=== PATIENT | female | born 1940 | race Caucasian/White ===

== ENCOUNTER 2023-11-10 06:15 | Day surgery (SDC) | payer MEDICARE ==
[2023-11-10] MEDS ORDERED: Sodium Chloride 0.9% 1000 ML 1,000 ML ONE (06:50)
[2023-11-10] MEDS: Sodium Chloride 0.9% 1000 ML 1,000 ML IV SCH (06:57)
[2023-11-10] MEDS ORDERED: DIPRIVAN 200 MG/20 ML IV ONE (08:01)
[2023-11-10] MEDS ORDERED: Xylocaine-Mpf 2% 5 Ml Vial ONE (08:01)
[2023-11-10] MEDS ORDERED: ATROPINE SULFATE 1MG ONE (08:03)
[2023-11-10] MEDS ORDERED: Ephedrine Sulfate 50 MG/ML ONE (08:17)
[2023-11-10 08:48] VITALS: TEMP 97
[2023-11-10 09:06] VITALS: BP 147/87; PULSE 74; RESP 18; O2SAT 98
--- NOTE | 2023-11-10 11:29 | OP ---
SURGERY DATE/TIME: 11/10/2023 0802 PREOPERATIVE DIAGNOSIS: Change in bowel habits with loose stools. POSTOPERATIVE DIAGNOSIS: Proctitis. PROCEDURE: Colonoscopy with cold forceps biopsy of the rectal area. SURGEON: Dr. Meek. ANESTHESIA: Medications given by anesthesia department. HISTORY: The patient is an 83-year-old white female presents now with change in bowel habits with loose stools. The patient reports her last colonoscopy was approximately 20 years ago. The patient is felt to need to have endoscopic evaluation due to change in bowel habits. The patient was appraised of the risks of the procedure including the risk of perforation, phlebitis, untoward reaction to medication, bleeding and missed lesions. The patient verbalized her understanding and desired to have the procedure performed. DESCRIPTION OF PROCEDURE: The patient was given the medications by the anesthesia department. She had continuous pulse oximetry, ECG monitoring and intermittent blood pressure monitoring during the examination. The patient is placed in the left lateral decubitus position. Digital rectal examination was performed and revealed normal anal sphincter tone and no masses. The flexible Olympus pediatric colonoscope was used to intubate the rectum. A view of the colon was developed sequentially to the cecum. Upon withdrawal, there was noted to be the proctitis and this is biopsied using three passes of the cold forceps biopsy instrument. No other mucosal lesions were encountered. The scope was removed from the patient who tolerated the procedure well and was sent back to OP recovery in good condition. The prep was noted to be fair to good. There was also noted during the examination and prior to the examine the patient was somewhat bradycardic.
== END 2023-11-10 09:06 | disposition home or self-care (01) ==
LOC: SDC 06:15
PROVIDERS: ATTEND Family Medicine
DX: K62.89 Other specified diseases of anus and rectum (principal); R19.4 Change in bowel habit; E11.9 Type 2 diabetes mellitus without complications
CPT/HCPCS: 82947; 93005; 99100; J0461; J2704

== ENCOUNTER 2024-01-15 10:08 | Emergency (ER) | payer MEDICARE ==
--- NOTE | 2024-01-15 10:17 | ERPHSYRPT ---
- History of Present Illness Time Seen by Provider: 01/15/24 10:17 Historian: patient, family, EMS Exam Limitations: no limitations Physician History: This is an 83-year-old white female patient of Dr. Richardson who was brought into the emergency department by the paramedics after "passing out" followed by episode of vomiting then dry heaves. Patient was given Zofran and her nausea has improved. Patient had a dental implant yesterday. She was given prescriptions for Angel Fire and amoxicillin and thought maybe this combination of medications brought on the nausea and vomiting. However, she did state that she does not recall falling backwards as reported by her family/. She did not hit her head. She does not have chest pain. She does not have shortness of breath. She has no abdominal pain. She did have some diarrhea episodes in the last couple of days and even took Imodium prior to her dental implant because she did not want to soil herself during the procedure. Patient has a history of diabetes and hypertension. Timing/Duration: week(s) (Similar episodes have happened intermittently in the last several weeks to months), intermittent, sudden ('s morning), worse Activities at Onset: none Abdominal Pain Onset Location: other (Abdominal pain) Severity of Pain-Max: none Severity of Pain-Current: none Modifying Factors: Improves With: vomiting (And dry heaves) Associated Symptoms: diarrhea, loss of appetite, nausea, vomiting, other (And dry heaves), No chest pain, No neck pain Previous symptoms: other (Several similar symptoms in the last several weeks) Allergies/Adverse Reactions: Sulfa (Sulfonamide Antibiotics) Allergy (Verified 11/10/23 06:43) propoxyphene [From Darvocet-N] Adverse Reaction (Mild, Verified 11/10/23 06:43) "feels weird" acetaminophen [From Lortab] Adverse Reaction (Verified 11/10/23 06:43) hydrocodone bitartrate [From Lortab] Adverse Reaction (Verified 11/10/23 06:43) Home Medications: Cholecalciferol (Vitamin D3) [Vitamin D-3] 2,000 unit PO DAILY 09/02/14 [History] Metoprolol Succinate 50 mg [Toprol Xl 50 MG] 50 mg PO DAILY 09/02/14 [History] Glimepiride 2 mg [Amaryl 2 MG] 2 mg PO BID 09/15/23 [History] Lisinopril 10 mg [Zestril 10 MG] 10 mg PO DAILY 09/15/23 [History] Multivitamin [Multiple Vitamins] 1 each PO DAILY 09/15/23 [History] Triamcinolone 0.1% Cream [Kenalog 0.1% Cream 15 gm] 15 gm TP BID 09/15/23 [History] Pioglitazone 30 mg [Actos 30 MG] 30 mg PO DAILY 11/10/23 [History] Hx Tetanus, Diphtheria Vaccination/Date Given: Yes (UNKNOWN) Hx Influenza Vaccination/Date Given: No Hx Pneumococcal Vaccination/Date Given: No Travel Risk - International Travel Have you traveled outside of the country in past 3 weeks: No - Emerging Infectious Disease Are you exhibiting symptoms associated with any current EIDs: No - Review of Systems Constitutional: No Symptoms Eyes: No Symptoms Ears, Nose, & Throat: No Symptoms Respiratory: No Symptoms Cardiac: No Symptoms Abdominal/Gastrointestinal: Nausea, Vomiting Genitourinary Symptoms: No Symptoms Musculoskeletal: No Symptoms Skin: No Symptoms Neurological: Other (Passed out with loss of consciousness), No Headache Psychological: No Symptoms Endocrine: No Symptoms Hematologic/Lymphatic: No Symptoms Immunological/Allergic: No Symptoms All Other Systems: Reviewed and Negative - Past Medical History Pertinent Past Medical History: Yes Neurological History: No Pertinent History ENT History: No Pertinent History Cardiac History: Hypertension Respiratory History: No Pertinent History Endocrine Medical History: Diabetes Type II Musculoskeletal History: No Pertinent History GI Medical History: No Pertinent History History: Renal Disease Psycho-Social History: No Pertinent History Female Reproductive Disorders: No Pertinent History Other Medical History: left broken arm. left broken wrist - Past Surgical History Past Surgical History: Yes Neuro Surgical History: No Pertinent History Cardiac: No Pertinent History Respiratory: No Pertinent History Gastrointestinal: Appendectomy Genitourinary: No Pertinent History Musculoskeletal: Orthopedic Surgery Female Surgical History: Section, Tubal Ligation Other Surgical History: colonoscopy - Social History Smoking Status: Never smoker Exposure to second hand smoke: No Drug Use: none Patient Lives Alone: No - Nursing Vital Signs Nursing Vital Signs: Initial Vital Signs Temperature 97.1 F 01/15/24 10:09 Pulse Rate 79 01/15/24 10:09 Respiratory Rate 18 01/15/24 10:09 Blood Pressure 138/62 01/15/24 10:09 O2 Sat by Pulse Oximetry 98 01/15/24 10:09 Pain Scale Pain Intensity 0 - Physical Exam General Appearance: no apparent distress, alert, anxiety Eye Exam: PERRL/EOMI, eyes nml inspection Ears, Nose, Throat Exam: normal ENT inspection, moist mucous membranes Neck Exam: normal inspection, non-tender, supple, full range of motion Respiratory Exam: normal breath sounds, lungs clear, airway intact, No chest tenderness, No respiratory distress Cardiovascular Exam: regular rate/rhythm, normal heart sounds, normal peripheral pulses Gastrointestinal/Abdomen Exam: soft, normal bowel sounds, No tenderness Pelvic Exam: not done Rectal Exam: not done Back Exam: normal inspection, normal range of motion, No CVA tenderness, No vertebral tenderness Extremity Exam: normal inspection, normal range of motion, pelvis stable Neurologic Exam: alert, oriented x 3, cooperative, lokie engineer II-XII nml as tested, nml cerebellar function, nml station & gait, sensation nml Skin Exam: normal color, warm, dry Lymphatic Exam: No adenopathy SpO2 Interpretation: normal O2 Delivery: Room Air - Course Nursing assessment & vital signs reviewed: Yes EKG Interpreted by Me: RATE (67), Sinus Rhythm, NORMAL AXIS, NORMAL INTERVALS, NORMAL QRS, Other (No acute ischemic changes on today's twelve-lead EKG.) Ordered Tests: Active Orders 24 hr Category Date Time Status Aircraft Engine Installer STAT Care 01/15/24 10:41 Active EKG-ER Only STAT Care 01/15/24 10:40 Active IV Insertion STAT Care 01/15/24 10:40 Active Pulse Oximetry (ED) STAT Care 01/15/24 10:40 Active HEAD WITHOUT CONTRAST [CT] Stat Exams 01/15/24 10:41 Completed AMYLASE Stat Lab 01/15/24 10:50 Completed CBC W DIFF Stat Lab 01/15/24 10:50 Completed CMP Stat Lab 01/15/24 10:50 Completed LIPASE Stat Lab 01/15/24 10:50 Completed MAGNESIUM Stat Lab 01/15/24 10:50 Completed MONO SCREEN Stat Lab 01/15/24 10:50 Completed TROPONIN Q4H Lab 01/15/24 10:50 Completed TROPONIN Q4H Lab 01/15/24 14:45 Ordered TROPONIN Q4H Lab 01/15/24 18:45 Ordered UA W/RFX UR CULTURE Stat Lab 01/15/24 11:52 Completed Medication Summary Discontinued Medications Generic Name Dose Route Start Last Admin Trade Name Henri PRN Reason Stop Dose Admin Sodium Chloride 500 mls @ 500 mls/hr 01/15/24 10:42 01/15/24 12:09 Sodium Chloride 0.9% 500 Ml IV 01/15/24 11:41 Infused .Q1H ONE Infusion Sodium Chloride Confirm 01/15/24 10:52 Sodium Chloride 0.9% 500 Ml Administered 01/15/24 10:53 Dose 500 mls @ ud IV .STK-MED ONE Lab/Rad Data: Laboratory Result Diagrams 01/15/24 10:50 01/15/24 10:50 Laboratory Results 01/15/24 01/15/24 01/15/24 Range/Units 11:52 10:50 10:50 WBC (3.98-10.04) x10^3/uL RBC (3.93-5.22) x10^6/uL Hgb (11.2-15.7) g/dL Hct (34.1-44.9) % MCV (79.4-94.8) fL MCH (25.6-32.2) pg MCHC (32.2-35.5) g/dL RDW (11.7-14.4) % Plt Count (182-369) x10^3/uL MPV (9.4-12.3) fL Gran % (34.0-71.1) % Immature Gran % (Auto) (0.001-0.429) % Nucleat RBC Rel Count (0.00-0.2) % Eos # (Auto) (0.04-0.36) x10^3/uL Immature Gran # (Auto) (0.001-0.031) x10^3u/L Absolute Lymphs (auto) (1.18-3.74) x10^3/uL Absolute Monos (auto) (0.24-0.86) x10^3/uL Absolute Nucleated RBC (0.00-0.012) x10^3u/L Lymphocytes % (19.3-51.7) % Monocytes % (4.7-12.5) % Eosinophils % (0.7-5.8) % Basophils % (0.1-1.2) % Absolute Granulocytes (1.56-6.13) x10^3/uL Basophils # (0.01-0.08) x10^3/uL Sodium (135-145) mmol/L Potassium (3.5-5.1) mmol/L Chloride (98-107) mmol/L Carbon Dioxide (22-30) mmol/L Anion Gap (5-15) MEQ/L BUN (7-17) mg/dL Creatinine (0.52-1.04) mg/dL Estimated GFR ML/MIN Glucose (74-106) mg/dL Calcium (8.4-10.2) mg/dL Magnesium (1.6-2.3) mg/dL Total Bilirubin (0.2-1.3) mg/dL AST (14-36) U/L ALT (0-35) U/L Alkaline Phosphatase (38-126) U/L Troponin I < 0.012 (0.000-0.033) ng/mL Serum Total Protein (6.3-8.2) g/dL Albumin (3.5-5.0) g/dL Amylase (30-110) U/L Lipase (23-300) U/L Urine Color Yellow (Yellow) Urine Appearance Clear (Clear) Urine pH 5.5 (4.6-8.0) Ur Specific [place] 1.015 (1.005-1.030) Urine Protein Negative (Negative) Urine Glucose (UA) Negative (Negative) mg/dL Urine Ketones Negative (Negative) Urine Blood Negative (Negative) Urine Nitrite Negative (Negative) Urine Bilirubin Negative (Negative) Urine Urobilinogen 0.2 (0.2) mg/dL Ur Leukocyte Esterase Negative (Negative) U Hyaline Cast (Auto) 3-5 A (0-2) /LPF Urine Microscopic RBC 0-2 (0-5) /HPF Urine Microscopic WBC 0-2 (0-5) /HPF Ur Epithelial Cells None Seen (None Seen) /HPF Urine Bacteria None Seen (None Seen) /HPF Urine Culture Reflexed NO (NO) Monoscreen (NEGATIVE) Influenza Type A Ag NEGATIVE (NEGATIVE) Influenza Type B Ag NEGATIVE (NEGATIVE) RSV (PCR) NEGATIVE (NEGATIVE) SARS-CoV-2 (PCR) NEGATIVE (NEGATIVE) 01/15/24 01/15/24 01/15/24 Range/Units 10:50 10:50 10:50 WBC 5.5 (3.98-10.04) x10^3/uL RBC 3.90 L (3.93-5.22) x10^6/uL Hgb 12.1 (11.2-15.7) g/dL Hct 37.5 (34.1-44.9) % MCV 96.2 H (79.4-94.8) fL MCH 31.0 (25.6-32.2) pg MCHC 32.3 (32.2-35.5) g/dL RDW 13.6 (11.7-14.4) % Plt Count 141 L (182-369) x10^3/uL MPV 10.7 (9.4-12.3) fL Gran % 82.1 H (34.0-71.1) % Immature Gran % (Auto) 0.5 H (0.001-0.429) % Nucleat RBC Rel Count 0.0 (0.00-0.2) % Eos # (Auto) 0.07 (0.04-0.36) x10^3/uL Immature Gran # (Auto) 0.03 (0.001-0.031) x10^3u/L Absolute Lymphs (auto) 0.42 L (1.18-3.74) x10^3/uL Absolute Monos (auto) 0.44 (0.24-0.86) x10^3/uL Absolute Nucleated RBC 0.00 (0.00-0.012) x10^3u/L Lymphocytes % 7.6 L (19.3-51.7) % Monocytes % 8.0 (4.7-12.5) % Eosinophils % 1.3 (0.7-5.8) % Basophils % 0.5 (0.1-1.2) % Absolute Granulocytes 4.52 (1.56-6.13) x10^3/uL Basophils # 0.03 (0.01-0.08) x10^3/uL Sodium 140 (135-145) mmol/L Potassium 4.1 (3.5-5.1) mmol/L Chloride 107 (98-107) mmol/L Carbon Dioxide 24 (22-30) mmol/L Anion Gap 12.9 (5-15) MEQ/L BUN 31 H (7-17) mg/dL Creatinine 1.95 H (0.52-1.04) mg/dL Estimated GFR 25.4 ML/MIN Glucose 133 H (74-106) mg/dL Calcium 9.7 (8.4-10.2) mg/dL Magnesium 2.0 (1.6-2.3) mg/dL Total Bilirubin 1.20 (0.2-1.3) mg/dL AST 29 (14-36) U/L ALT 16 (0-35) U/L Alkaline Phosphatase 88 (38-126) U/L Troponin I (0.000-0.033) ng/mL Serum Total Protein 6.5 (6.3-8.2) g/dL Albumin 3.7 (3.5-5.0) g/dL Amylase 78 (30-110) U/L Lipase 116 (23-300) U/L Urine Color (Yellow) Urine Appearance (Clear) Urine pH (4.6-8.0) Ur Specific [place] (1.005-1.030) Urine Protein (Negative) Urine Glucose (UA) (Negative) mg/dL Urine Ketones (Negative) Urine Blood (Negative) Urine Nitrite (Negative) Urine Bilirubin (Negative) Urine Urobilinogen (0.2) mg/dL Ur Leukocyte Esterase (Negative) U Hyaline Cast (Auto) (0-2) /LPF Urine Microscopic RBC (0-5) /HPF Urine Microscopic WBC (0-5) /HPF Ur Epithelial Cells (None Seen) /HPF Urine Bacteria (None Seen) /HPF Urine Culture Reflexed (NO) Monoscreen NEGATIVE (NEGATIVE) Influenza Type A Ag (NEGATIVE) Influenza Type B Ag (NEGATIVE) RSV (PCR) (NEGATIVE) SARS-CoV-2 (PCR) (NEGATIVE) - Progress Progress: improved, re-examined Progress Note: 01/15/24 10:38 My medical decision making and the assignment of moderate complexity to this patient's medical issue today is based on review of the patient's past medical history, review the patient's medication list, review of patient drug allergy list, history present illness and physical findings on examination. The workup today includes placement of intravenous line, infusion of normal saline solution, CBC, CMP, amylase, lipase, magnesium level, urinalysis, viral swabs and monotest, as well as CT scan of the head without contrast. We will also perform a twelve-lead EKG and a troponin level. Differential diagnosis includes but is not limited to medication side effect, urinary tract infection, dehydration, electrolyte abnormalities, TIA, arrhythmia, myocardial infarction 01/15/24 12:[address] scan of the head without contrast was interpreted by the radiologist and I reviewed the impression. The impression states normal CT head without contrast. Incidental right maxillary sinus disease. 01/15/24 13:03 I interpreted the patient's laboratory data results. Based on the laboratory data results, the patient does not have an acute, emergent medical issue. Counseled pt/family regarding: lab results, diagnosis, need for follow-up, rad results Medical Desision Making - Independent Historian Additional History obtained from: Family - Diagnostic Testing Diagnostic test were ordered, analyzed, and reviewed by me: Yes Radiological Interpretation: Reviewed by me, Teleradiologist Report - Risk of complications Low Risk: Low risk of morbidity from additional dx testing or treatment - Departure Departure Disposition: Home Clinical Impression: Medication side effect, Sinusitis Condition: Stable Critical Care Time: No Referrals: BIBIANA RICHARDSON MD [Primary Care Provider] - Follow up/PCP as directed Additional Instructions: Drink plenty of fluids. Continue your antibiotics as prescribed. Stop your Angel Fire medication. Continue your other medication as prescribed. Call your prescribing provider today, to make arrangements for follow-up appointment for further evaluation management.
[2024-01-15 10:18] VITALS: RESP 18; TEMP 97.1
[2024-01-15] MEDS ORDERED: Sodium Chloride 0.9% 500 ML 500 ML IV ONE (10:52)
[2024-01-15] MEDS: Sodium Chloride 0.9% 500 ML 500 ML IV ONE (10:53)
[2024-01-15 11:08] LABS: Absolute Neutrophil Ct (ANC) 4.52 x10^3/uL (1.56-6.13); BASOPHIL % 0.5 % (0.1-1.2); Basophil (Absolute #) 0.03 x10^3/uL (0.01-0.08); Eosinophil % 1.3 % (0.7-5.8); Eosinophil (Absolute #) 0.07 x10^3/uL (0.04-0.36); Hematocrit 37.5 % (34.1-44.9); Hemoglobin 12.1 g/dL (11.2-15.7); IMMATURE GRAN # 0.03 x10^3u/L (0.001-0.031); IMMATURE GRAN % 0.5 % (0.001-0.429); Lymphocyte (Absolute #) 0.42 x10^3/uL (1.18-3.74); Lymphocytes % 7.6 % (19.3-51.7); Mean Cell Volume 96.2 fL (79.4-94.8); Mean Corpuscular Hgb Concent. 32.3 g/dL (32.2-35.5); Mean Platelet Volume 10.7 fL (9.4-12.3); Monocyte (Absolute #) 0.44 x10^3/uL (0.24-0.86); Neutrophil % 82.1 % (34.0-71.1); Platelet Count 141 x10^3/uL (182-369); Red Cell Distribution Width 13.6 % (11.7-14.4); White Blood Count 5.5 x10^3/uL (3.98-10.04)
[2024-01-15 11:23] LABS: ALBUMIN 3.7 g/dL (3.5-5.0); ANION GAP 12.9 MEQ/L (5-15); BILIRUBIN,TOTAL 1.2 mg/dL (0.2-1.3); Calcium 9.7 mg/dL (8.4-10.2); Creatinine 1 1.95 mg/dL (0.52-1.04); EST GLOMERULAR FILTRATION RATE 25.4 ML/MIN; Potassium 4.1 mmol/L (3.5-5.1); Total Protein 6.5 g/dL (6.3-8.2)
[2024-01-15 11:43] LABS: INFLUENZA A NEGATIVE (NEGATIVE); INFLUENZA B NEGATIVE (NEGATIVE); RESPIRATORY SYNCTIAL VIRUS NEGATIVE (NEGATIVE); SARS-CoV-2 Xpert Express NEGATIVE (NEGATIVE)
--- NOTE | 2024-01-15 11:57 | XRAY ---
Indication: Syncope. Multiple contiguous axial images obtained through the head without contrast. Comparison: September 30, 2023 Normal appearing brain parenchyma, ventricles, and bony calvarium for patient's age. Again mild mucosal thickening inferior right maxillary sinus. Remaining visualized paranasal sinuses and mastoid air cells are clear. Impression: Continued normal CT head without contrast exam. Again incidental right maxillary sinus disease.
[2024-01-15 12:16] VITALS: PULSE 80; O2SAT 98
[2024-01-15 12:52] LABS: Appearance Clear (Clear); Bacteria None Seen /HPF (None Seen); Bilirubin Negative (Negative); Blood Negative (Negative); Epithelial Cells None Seen /HPF (None Seen); Glucose, Urine Negative (Negative); Ketones Negative (Negative); Leukocyte Esterase Negative (Negative); Nitrite Negative (Negative); Ph 5.5 (4.6-8.0); Protein,Urine Dip Negative (Negative); RBC 0-2 /HPF (0-5); Specific Gravity 1.015 (1.005-1.030); Urobilinogen 0.2 mg/dL (0.2); WBC 0-2 /HPF (0-5)
[2024-01-15 12:58] LABS: ADD URINE CULTURE? NO (NO)
[2024-01-15 13:07] VITALS: BP 127/81
== END 2024-01-15 13:23 | disposition home or self-care (01) ==
LOC: ED 10:08
DX: R11.2 Nausea with vomiting, unspecified (principal); T40.2X5A Adverse effect of other opioids, initial encounter; J32.0 Chronic maxillary sinusitis; R55 Syncope and collapse; E11.9 Type 2 diabetes mellitus without complications; I10 Essential (primary) hypertension; Z79.84 Long term (current) use of oral hypoglycemic drugs; Z79.899 Other long term (current) drug therapy
CPT/HCPCS: 0241U; 36000; 36415; 70450; 80053; 81001; 82150; 83690; 83735; 84484; 85025; 86308; 93005; 93041; 94760; 96360; 99284

== ENCOUNTER 2024-06-05 10:08 | Emergency (ER) | payer MEDICARE ==
[2024-06-05 10:44] LABS: Absolute Neutrophil Ct (ANC) 2.86 x10^3/uL (1.56-6.13); BASOPHIL % 0.8 % (0.1-1.2); Basophil (Absolute #) 0.03 x10^3/uL (0.01-0.08); Eosinophil % 1.8 % (0.7-5.8); Eosinophil (Absolute #) 0.07 x10^3/uL (0.04-0.36); Hematocrit 38.7 % (34.1-44.9); Hemoglobin 12.6 g/dL (11.2-15.7); IMMATURE GRAN # 0.02 x10^3u/L (0.001-0.031); IMMATURE GRAN % 0.5 % (0.001-0.429); Lymphocyte (Absolute #) 0.63 x10^3/uL (1.18-3.74); Lymphocytes % 16.1 % (19.3-51.7); Mean Corpuscular Hemoglobin 31.3 pg (25.6-32.2); Mean Corpuscular Hgb Concent. 32.6 g/dL (32.2-35.5); Mean Platelet Volume 10.2 fL (9.4-12.3); Monocytes % 7.7 % (4.7-12.5); Neutrophil % 73.1 % (34.0-71.1); Platelet Count 126 x10^3/uL (182-369); Red Blood Count 4.03 x10^6/uL (3.93-5.22); Red Cell Distribution Width 13.2 % (11.7-14.4); White Blood Count 3.9 x10^3/uL (3.98-10.04)
[2024-06-05 10:58] LABS: ALBUMIN 3.8 g/dL (3.5-5.0); ANION GAP 9.1 MEQ/L (5-15); BILIRUBIN,TOTAL 0.8 mg/dL (0.2-1.3); Calcium 9.2 mg/dL (8.4-10.2); Creatinine 1 1.7 mg/dL (0.52-1.04); EST GLOMERULAR FILTRATION RATE 29.8 ML/MIN; MAGNESIUM 1.9 mg/dL (1.6-2.3); Potassium 3.3 mmol/L (3.5-5.1); Total Protein 6.6 g/dL (6.3-8.2)
--- NOTE | 2024-06-05 11:19 | ERPHSYRPT ---
- History of Present Illness Time Seen by Provider: 06/05/24 11:13 Source: patient, family, EMS Exam Limitations: no limitations Patient Subjective Stated Complaint: c/o of hypoglycemia Triage Nursing Assessment: patient brought into ED by ambulance with c/o hypoglycemia. patient states she took her medicine last night and didn't have anything to eat. patient was in bed, states that she remembers waking up this morning but seemed to have some confusion. Patient then stated she doesn't remember anything up until she woke up in the ambulance. Patient had a blood sugar of 61, EMS gave dextrose, her next blood sugar was 124. She has a blood sugar of 89 per our glucometer. patient is slightly hypertensive, skin w/n/d, AxOx3, brought in by stretcher, patient doesn't appear to be in any distress at this time. Physician History: patient brought into ED by ambulance with c/o hypoglycemia. patient states she took her medicine last night and didn't have anything to eat. patient was in bed, states that she remembers waking up this morning but seemed to have some confusion. Patient then stated she doesn't remember anything up until she woke up in the ambulance. Patient had a blood sugar of 61, EMS gave dextrose, her next blood sugar was 124. She has a blood sugar of 89 per our glucometer. patient doesn't appear to be in any distress at this time. Ms. Clark Is 84-year-old female with significant past medical history of type 2 diabetes hypertension was brought into the emergency room with the symptoms of low blood sugar. When patient came to the emergency room patient is alert awake oriented and she states that she took her medicine last night and did not eat anything she went to bed and since then she does not remember anything except in the morning she was found to be confused and ambulance was called in. Ambulance checked her blood sugar which was 61 they gave her dextrose and brought her into the emergency room in the emergency room initially her blood sugar was 124 which was checked by EMS and then when it was checked by emergency room nurse it was 89. Patient is alert awake oriented to time place and person denies any other symptoms. Patient states that this is happening off and on more frequently especially when she does not eat well. Timing/Duration: today Severity: mild Associated Symptoms: denies symptoms Allergies/Adverse Reactions: Sulfa (Sulfonamide Antibiotics) Allergy (Verified 06/05/24 10:25) propoxyphene [From Darvocet-N] Adverse Reaction (Mild, Verified 06/05/24 10:25) "feels weird" acetaminophen [From Lortab] Adverse Reaction (Verified 06/05/24 10:25) hydrocodone bitartrate [From Lortab] Adverse Reaction (Verified 06/05/24 10:25) Home Medications: Cholecalciferol (Vitamin D3) [Vitamin D-3] 2,000 unit PO DAILY 09/02/14 [H istory] Metoprolol Succinate 50 mg [Toprol Xl 50 MG] 50 mg PO DAILY 09/02/14 [History] Glimepiride 2 mg [Amaryl 2 MG] 2 mg PO BID 09/15/23 [History] Lisinopril 10 mg [Zestril 10 MG] 10 mg PO DAILY 09/15/23 [History] Multivitamin [Multiple Vitamins] 1 each PO DAILY 09/15/23 [History] Triamcinolone 0.1% Cream [Kenalog 0.1% Cream 15 gm] 15 gm TP BID 09/15/23 [History] Pioglitazone 30 mg [Actos 30 MG] 30 mg PO DAILY 11/10/23 [History] Hx Tetanus, Diphtheria Vaccination/Date Given: No (UNKNOWN) Hx Influenza Vaccination/Date Given: No Hx Pneumococcal Vaccination/Date Given: No Travel Risk - International Travel Have you traveled outside of the country in past 3 weeks: No - Emerging Infectious Disease Are you exhibiting symptoms associated with any current EIDs: No - Review of Systems Constitutional: Lethargy, Weakness, No Fever, No Chills Eyes: No Symptoms Ears, Nose, & Throat: No Symptoms Respiratory: No Cough, No Dyspnea Cardiac: No Chest Pain, No Edema, No Syncope Abdominal/Gastrointestinal: No Abdominal Pain, No Nausea, No Vomiting, No Diarrhea Genitourinary Symptoms: No Dysuria Musculoskeletal: No Back Pain, No Neck Pain Skin: No Rash Neurological: No Dizziness, No Focal Weakness, No Sensory Changes Psychological: No Symptoms Endocrine: No Symptoms All Other Systems: Reviewed and Negative - Past Medical History Pertinent Past Medical History: Yes Neurological History: No Pertinent History ENT History: No Pertinent History Cardiac History: Hypertension Respiratory History: No Pertinent History Endocrine Medical History: Diabetes Type II Musculoskeletal History: No Pertinent History GI Medical History: No Pertinent History History: Renal Disease Psycho-Social History: No Pertinent History Female Reproductive Disorders: No Pertinent History Other Medical History: left broken arm. left broken wrist - Past Surgical History Past Surgical History: Yes Neuro Surgical History: No Pertinent History Cardiac: No Pertinent History Respiratory: No Pertinent History Gastrointestinal: Appendectomy Genitourinary: No Pertinent History Musculoskeletal: Orthopedic Surgery Female Surgical History: Section, Tubal Ligation Other Surgical History: colonoscopy - Social History Smoking Status: Never smoker Exposure to second hand smoke: No Drug Use: none Patient Lives Alone: No - Social Determinants of Health Will the patient participate in the screening: Yes Do you worry about a steady place to live?: No Do you have any problems with any of the following?: No known problems In the past 12 months,have you had to go without utilities?: No Transportation Issues: No Has anyone in your support network made you feel unsafe?: No Have you or anyone in your house had to go without enough: No - Nursing Vital Signs Nursing Vital Signs: Initial Vital Signs Pulse Rate 60 06/05/24 10:09 Respiratory Rate 16 06/05/24 10:09 Blood Pressure 149/107 06/05/24 10:09 O2 Sat by Pulse Oximetry 99 06/05/24 10:09 Pain Scale Pain Intensity 0 - Physical Exam General Appearance: no apparent distress, alert Eye Exam: PERRL/EOMI, eyes nml inspection Ears, Nose, Throat Exam: normal ENT inspection, TMs normal, pharynx normal, moist mucous membranes Neck Exam: normal inspection, non-tender, supple, full range of motion Respiratory Exam: normal breath sounds, lungs clear, No respiratory distress Cardiovascular Exam: regular rate/rhythm, normal heart sounds, normal peripheral pulses Gastrointestinal/Abdomen Exam: soft, normal bowel sounds, No tenderness, No mass Back Exam: normal inspection, normal range of motion, No CVA tenderness, No vertebral tenderness Extremity Exam: normal inspection, normal range of motion, pelvis stable Neurologic Exam: alert, oriented x 3, cooperative, normal mood/affect, nml cerebellar function, nml station & gait, sensation nml, No motor deficits Skin Exam: normal color, warm, dry, No rash Lymphatic Exam: No adenopathy SpO2 Interpretation: normal SpO2: 99 O2 Delivery: Room Air - Course Nursing assessment & vital signs reviewed: Yes Ordered Tests: Active Orders 24 hr Category Date Time Status IV Insertion STAT Care 06/05/24 10:27 Active CBC W DIFF Stat Lab 06/05/24 10:36 Completed CMP Stat Lab 06/05/24 10:36 Completed MAGNESIUM Stat Lab 06/05/24 10:36 Completed UA W/RFX UR CULTURE Stat Lab 06/05/24 11:22 Completed Medication Summary Generic Name Dose Route Start Last Admin Trade Name Freq PRN Reason Stop Dose Admin Sodium Chloride 1,000 mls @ 999 mls/hr 06/05/24 11:20 06/05/24 11:37 Sodium Chloride 0.9% 1000 Ml IV 06/05/24 12:20 999 mls/hr .Q1H1M STA Administration Discontinued Medications Generic Name Dose Route Start Last Admin Trade Name Freq PRN Reason Stop Dose Admin Sodium Chloride Confirm 06/05/24 11:35 Sodium Chloride 0.9% 1000 Ml Administered 06/05/24 11:36 Dose 1,000 mls @ ud .ROUTE .K-MED ONE Lab/Rad Data: Laboratory Result Diagrams 06/05/24 10:36 06/05/24 10:36 Laboratory Results 06/05/24 06/05/24 06/05/24 Range/Units 11:22 10:36 10:36 WBC 3.9 L (3.98-10.04) x10^3/uL RBC 4.03 (3.93-5.22) x10^6/uL Hgb 12.6 (11.2-15.7) g/dL Hct 38.7 (34.1-44.9) % MCV 96.0 H (79.4-94.8) fL MCH 31.3 (25.6-32.2) pg MCHC 32.6 (32.2-35.5) g/dL RDW 13.2 (11.7-14.4) % Plt Count 126 L (182-369) x10^3/uL MPV 10.2 (9.4-12.3) fL Gran % 73.1 H (34.0-71.1) % Immature Gran % (Auto) 0.5 H (0.001-0.429) % Nucleat RBC Rel Count 0.0 (0.00-0.2) % Eos # (Auto) 0.07 (0.04-0.36) x10^3/uL Immature Gran # (Auto) 0.02 (0.001-0.031) x10^3u/L Absolute Lymphs (auto) 0.63 L (1.18-3.74) x10^3/uL Absolute Monos (auto) 0.30 (0.24-0.86) x10^3/uL Absolute Nucleated RBC 0.00 (0.00-0.012) x10^3u/L Lymphocytes % 16.1 L (19.3-51.7) % Monocytes % 7.7 (4.7-12.5) % Eosinophils % 1.8 (0.7-5.8) % Basophils % 0.8 (0.1-1.2) % Absolute Granulocytes 2.86 (1.56-6.13) x10^3/uL Basophils # 0.03 (0.01-0.08) x10^3/uL Sodium 142 (135-145) mmol/L Potassium 3.3 L (3.5-5.1) mmol/L Chloride 110 H (98-107) mmol/L Carbon Dioxide 27 (22-30) mmol/L Anion Gap 9.1 (5-15) MEQ/L BUN 28 H (7-17) mg/dL Creatinine 1.70 H (0.52-1.04) mg/dL Estimated GFR 29.8 ML/MIN Glucose 99 (74-106) mg/dL Calcium 9.2 (8.4-10.2) mg/dL Magnesium 1.9 (1.6-2.3) mg/dL Total Bilirubin 0.80 (0.2-1.3) mg/dL AST 33 (14-36) U/L ALT 18 (0-35) U/L Alkaline Phosphatase 95 (38-126) U/L Serum Total Protein 6.6 (6.3-8.2) g/dL Albumin 3.8 (3.5-5.0) g/dL Urine Color Yellow (Yellow) Urine Appearance Clear (Clear) Urine pH 6.0 (4.6-8.0) Ur Specific [place] 1.010 (1.005-1.030) Urine Protein Negative (Negative) Urine Glucose (UA) Negative (Negative) mg/dL Urine Ketones Negative (Negative) Urine Blood Negative (Negative) Urine Nitrite Negative (Negative) Urine Bilirubin Negative (Negative) Urine Urobilinogen 0.2 (0.2) mg/dL Ur Leukocyte Esterase Moderate A (Negative) U Hyaline Cast (Auto) NONE SEEN (0-2) /LPF Urine Microscopic RBC 0-2 (0-5) /HPF Urine Microscopic WBC 6-10 A (0-5) /HPF Ur Epithelial Cells None Seen (None Seen) /HPF Urine Bacteria None Seen (None Seen) /HPF Urine Culture Reflexed NO (NO) - Progress Progress: improved Counseled pt/family regarding: lab results, diagnosis, need for follow-up Medical Desision Making - Independent Historian Additional History obtained from: Family - Diagnostic Testing Diagnostic test were ordered, analyzed, and reviewed by me: Yes - Risk of complications Minimal Risk: Minimal risk of morbidity The pt has a mod risk of morbidity or mortality based on: Need for prescription drug management - Departure Departure Disposition: Home Clinical Impression: Hypoglycemia associated with type 2 diabetes mellitus, Medication side effect, Chronic renal disease, stage 2, mildly decreased glomerular filtration rate between 60-89 mL/min/1.73 square meter Adverse drug reaction Qualifiers: Encounter type: initial encounter Qualified Code(s): T50.905A - Adverse effect of unspecified drugs, medicaments and biological substances, initial encounter Diabetic renal disease Qualifiers: Diabetes mellitus type: type 2 Qualified Code(s): E11.21 - Type 2 diabetes mellitus with diabetic nephropathy Condition: Stable Critical Care Time: No Referrals: BIBIANA RICHARDSON MD [Primary Care Provider] - Follow Up with PCP/3 days Instructions: Low Blood Sugar, Adult (DC) Additional Instructions: Have develop low blood sugar due to one of the diabetes medication glimepiride(Amaryl). You are taking this medicine twice a day so please make a change and take it only in the morning and stop the evening dose. Talk to your primary care physician for further change in this medication. Discharge/Care Plan EDUARDOJERRY MCKOY was seen on 06/05/24 in the Emergency Room. The patient was counseled regarding Diagnosis,Lab results, Imaging studies, need for follow up and when to return to the Emergency Room. Prescriptions given: Discharge Note I have spoken with the patient and/or caregivers. I have explained the patient's condition, diagnosis and treatment plan based on the information available to me at this time. I have answered the patient's and/or caregiver's questions and addressed any concerns. The patient and/or caregivers have as good understanding of the patient's diagnosis, condition and treatment plan as can be expected at this point. The vital signs have been stable. The patient's condition is stable and appropriate for discharge from the emergency department. The patient will pursue further outpatient evaluation with the primary care physician or other designated or consulting physician as outlined in the dischar ge instructions. The patient and/or caregivers are agreeable to this plan of care and follow-up instructions have been explained in detail. The patient and/or caregivers have received these instruction. The patient/and or caregivers are aware that any significant change in condition or worsening of symptoms should prompt an immediate return to this or the closest emergency department or call 911. JERRY CLARK was seen on 06/05/24 n the Emergency Room. At that time you were treated for an emergent condition, during your visit Laboratory, Radiology and/or other procedures may have been ordered. It is very important that you follow-up with your Primary Care Physician BIBIANA RICHARDSON within the next 24-48 hours to review your Emergency Room visit and the final results of testing that was ordered. Some test results such as Urine Cultures, Blood Cultures, and other cultures if ordered will not be finalized for 24-48 hours. If you do not have a Primary Care Provider please call the medical records department at [phone] ext [phone] to obtain a copy of your results or you may sign into our patient portal to obtain these results by visiting us @ [email or web address] and completing the following steps: 1. Click on the Patient Portal link 2. Click the Patient Self Enrollment Link to complete the enrollment form and entering your 3. Once the enrollment form is completed you will receive an email with a temporary ID and password at the email address you provided. 4. Next choose a user name and password. Your user name must be at least 4 characters long and your password must be at least 4 characters long. 5. Choose a security question from the list and provide your answer to the question. If you already have signed into the Health Portal you may access your Health Care Information 26/01 by the following steps: 1. Login to our website @ [email or web address] 2. Enter your original user name and password. FAQS The [facility] Health Portal is an online tool that contains your Lab Results, Radiology Reports, Visit History, Discharge Instructions and Health Summary Lab and Radiology Results will not be available for 72 hours on the portal. The Portal is a secure site, passwords are encryted and URLs are re-written so they cannot be copied and pasted. You and authorized family members are the only ones who can access your Portal. Also there is a timeout feature that protects your information if you leave the Portal page open. If you have technical difficulty please use the Contact Us link on the page this will allow you to submit any questions you have regarding the Portal or you may contact the Medical Record Department at [phone] ext [phone].
[2024-06-05] MEDS ORDERED: Sodium Chloride 0.9% 1000 ML 1,000 ML ONE (11:35)
[2024-06-05] MEDS: Sodium Chloride 0.9% 1000 ML 1,000 ML IV STA (11:37)
[2024-06-05 11:43] LABS: Appearance Clear (Clear); Bacteria None Seen /HPF (None Seen); Bilirubin Negative (Negative); Blood Negative (Negative); Epithelial Cells None Seen /HPF (None Seen); Glucose, Urine Negative (Negative); Hyaline Casts NONE SEEN /LPF (0-2); Ketones Negative (Negative); Leukocyte Esterase Moderate (Negative); Nitrite Negative (Negative); Protein,Urine Dip Negative (Negative); RBC 0-2 /HPF (0-5); Urobilinogen 0.2 mg/dL (0.2)
[2024-06-05 13:01] VITALS: PULSE 70; RESP 16
[2024-06-05 13:03] VITALS: BP 137/70; O2SAT 100
== END 2024-06-05 13:21 | disposition home or self-care (01) ==
LOC: ED 10:08
DX: E11.649 Type 2 diabetes mellitus with hypoglycemia without coma (principal); T38.3X5A Adverse effect of insulin and oral hypoglycemic [antidiabetic] drugs, initial encounter; E11.22 Type 2 diabetes mellitus with diabetic chronic kidney disease; I12.9 Hypertensive chronic kidney disease with stage 1 through stage 4 chronic kidney disease, or unspecified chronic kidney disease; N18.2 Chronic kidney disease, stage 2 (mild); Z79.899 Other long term (current) drug therapy
CPT/HCPCS: 36415; 80053; 81001; 83735; 85025; 96360; 99283; 99284